=== PATIENT | male | born 1995 | race Caucasian/White ===

== ENCOUNTER 2018-06-21 18:53 | Emergency (ER) | payer MEDICARE, OTHER ==
[~2018-06-21] VITALS: Ht 170.2 cm; Wt 70.0 kg
[~2018-06-21 18:53] MED LIST: DOCU-144 PO
[2018-06-21 19:13] VITALS: Ht 170.2 cm; Wt 70.0 kg
[2018-06-21] MEDS ORDERED: ACET-141 PO (23:11)
[2018-06-21] MEDS ORDERED: IBUP-1561 PO (23:11)
--- NOTE | 2018-06-21 23:12 | ERD ---
ER Documentation Chief Complaint Chief Complaint Back pain/DAILEY/throat pain X 3 days ROS All systems reviewed and are negative except as per history of present illness. Medications Home Meds Active Scripts Ibuprofen* (Motrin*) 400 Mg Tab, 400 MG PO Q6H PRN for PAIN AND OR ELEVATED TEMP , #30 TAB Prov:CIRILO JOSE DO 06/21/18 Acetaminophen* (Acetaminophen*) 500 MG Extra Strength Tablet, 500 MG PO Q4H PRN for PAIN AND OR ELEVATED TEMP, #30 TAB Prov:CIRILO JOSE DO 06/21/18 Docusate Sodium* (Colace*) 100 Mg Cap, 100 MG PO DAILY PRN for CONSTIPATION for 30 Days, CAP Prov:ELOY MACKENZIE 06/01/15 Allergies Allergies: Coded Allergies: No Known Allergy (Unverified , 05/19/15) PMhx/Soc History of Surgery: Yes (HAD A RIGHT KNEE SX DURING CHILDHOOD) Anesthesia Reaction: No (UNKNOWN) Hx Neurological Disorder: No Hx Respiratory Disorders: No Hx Cardiac Disorders: No Hx Psychiatric Problems: No Hx Miscellaneous Medical Probl: No Hx Alcohol Use: No Hx Substance Use: No Hx Tobacco Use: No Smoking Status: Never smoker Physical Exam Vitals Vital Signs Date Temp Pulse Resp B/P (MAP) Pulse Ox O2 O2 Flow FiO2 Time Delivery Rate 06/21/18 98.0 58 18 126/70 98 19:13 (88) Physical Exam Const: No acute distress Head: Atraumatic Eyes: Normal Conjunctiva ENT: Normal External Ears, Nose and Mouth. Neck: Full range of motion. No meningismus. Resp: Clear to auscultation bilaterally Cardio: Regular rate and rhythm, no murmurs Abd: Soft, non tender, non distended. Normal bowel sounds Skin: No petechiae or rashes Back: No midline or flank tenderness Ext: No cyanosis, or edema Neur: Awake and alert Psych: Normal Mood and Affect Results 24 hrs Laboratory Tests Test 06/21/18 21:32 Urine Color YELLOW Urine Clarity CLEAR Urine pH 5.0 Urine Specific [place] 1.013 Urine Ketones NEGATIVE mg/dL Urine Nitrite NEGATIVE mg/dL Urine Bilirubin NEGATIVE mg/dL Urine Urobilinogen NEGATIVE mg/dL Urine Leukocyte Esterase NEGATIVE Faith/ul Urine Hemoglobin NEGATIVE mg/dL Urine Glucose NEGATIVE mg/dL Urine Total Protein NEGATIVE mg/dl Departure Diagnosis: Primary Impression: Back pain Back pain location: low back pain Chronicity: unspecified Back pain laterality: unspecified Sciatica presence: unspecified whether sciatica present Qualified Codes: M54.5 - Low back pain Condition: Fair Patient Instructions: Back Pain (Acute Or Chronic) Referrals: [facility] YOU HAVE RECEIVED A MEDICAL SCREENING EXAM AND THE RESULTS INDICATE THAT YOU DO NOT HAVE A CONDITION THAT REQUIRES URGENT TREATMENT IN THE EMERGENCY DEPARTMENT. FURTHER EVALUATION AND TREATMENT OF YOUR CONDITION CAN WAIT UNTIL YOU ARE SEEN IN YOUR DOCTORS OFFICE WITHIN THE NEXT 1-2 DAYS. IT IS YOUR RESPONSIBILITY TO MAKE AN APPOINTMENT FOR FOLOW-UP CARE. IF YOU HAVE A PRIMARY DOCTOR --you should call your primary doctor and schedule an appointment IF YOU DO NOT HAVE A PRIMARY DOCTOR YOU CAN CALL OUR PHYSICIAN REFERRAL HOTLINE AT IF YOU CAN NOT AFFORD TO SEE A PHYSICIAN YOU CAN CHOSE FROM THE FOLLOWING [facility] [address] [facility]. [facility] [address] [facility] [address] [facility] [address] [facility] [address] [facility] [facility]. [address] Additional Instructions: Llame al doctor MAISAÍAS y david magdalene VESNA PARA DENTRO DE 1-2 SANTANA.Dgale a la secretaria que nosotros le instruimos hacer esta vesna.Avise o llame si dennis condicin se empeora antes de la vesna. Regresa aqui si peor o no mejor. CIRILO JOSE DO June 21, 2018 23:12
[2018-06-21 23:50] VITALS: BP 121/70; PULSE 59; RESP 20
== END 2018-06-22 00:24 | disposition home or self-care (01) ==
LOC: FTE 18:53
DX: M54.5 Low back pain (principal)
CPT/HCPCS: 81003; 99283